=== PATIENT | male | born 1945 | race Caucasian/White ===

== ENCOUNTER 2019-04-20 10:27 | Outpatient (RCR) | payer MEDICARE, SELFPAY ==
[2019-03-17 08:50] LABS: INR 1.9
[2019-03-17 11:43] LABS: Basophils Absolute Auto 0.04 K/mm3 (0.00-0.10); Basophils Percent Auto 0.5 % (0.0-1.0); Eosinophils Percent Auto 1.3 % (1.0-6.0); Hematocrit 37.3 % (37.0-46.0); Hemoglobin 12.8 g/dL (12.4-15.3); Immature Granulocyte Absolute 0.05 K/mm3 (0.00-0.00); Immature Granulocyte Percent A 0.7 % (0.0-0.0); Lymphocytes Absolute Auto 2.33 K/mm3 (1.10-4.50); Lymphocytes Percent Auto 31.1 % (18.0-42.0); Mean Corpuscular HGB Conc 34.3 g/dL (32.0-36.0); Mean Corpuscular Hemoglobin 31.5 pg (27.0-31.0); Mean Corpuscular Volume 91.9 fL (78.0-102.0); Mean Platelet Volume 9.8 fl (8.7-11.0); Monocytes Absolute Auto 0.49 K/mm3 (0.10-0.90); Monocytes Percent Auto 6.5 % (2.0-11.0); Neutrophils Absolute Auto 4.5 K/mm3 (1.7-7.2); Neutrophils Percent Auto 59.9 % (50.0-70.0); Platelet Count Result 282 K/mm3 (150-420); Red Blood Count 4.06 M/mm3 (4.70-6.10); Red Cell Distribution Width 13.2 % (11.6-14.4); White Blood Count 7.5 K/mm3 (4.8-10.8)
[2019-03-17 12:21] LABS: Hemoglobin A1C 13.4 % (<5.7)
[2019-03-17 12:59] LABS: Creatinine Urine 69.35 mg/dL (40-278)
[2019-03-17 13:04] LABS: MALB Creatinine Ratio 576.7 mg/g (0-30); Microalbumin Urine Random > 400.0 mg/L
[2019-03-17 13:05] LABS: Albumin Level 3.4 g/dL (3.4-5.0); Alkaline Phosphatase 128 U/L (46-116); Anion Gap 19.9 mmol/L (7-16); Bilirubin,Total 0.3 mg/dL (0.00-1.00); Blood Urea Nitrogen 29 mg/dL (7-18); Calcium 8.6 mg/dL (8.5-10.1); Carbon Dioxide 21 mmol/L (21-32); Chloride 101 mmol/L (98-108); Cholesterol 287 mg/dL (0-200); Estimated Glomerular Filt Rate 50; Glucose 386 mg/dL (70-99); HDL Direct 28 mg/dL (40-60); Osmolality Calculated 305 mOsm/kg (285-295); Potassium 4.9 mmol/L (3.5-5.1); Sodium 137 mmol/L (136-145); Total Protein 7.4 g/dL (6.4-8.2)
[2019-03-17 13:28] LABS: Alanine Aminotransferase 24 U/L (16-63); Aspartate Amino Transferase 61 U/L (15-37); Uric Acid 10.1 mg/dL (3.5-7.2)
[2019-03-17 13:37] LABS: LDL Cholesterol Calculated 59 mg/dL (<130); Triglycerides > 1000 mg/dL (0-150)
[2019-03-17 13:44] LABS: LDL Cholesterol Direct 73 mg/dL (0-130)
[2019-03-22 03:30] LABS: Hepatitis C Virus Antibody Nonreactive (Nonreactive)
[2019-03-30 15:36] LABS: INR 2.5; Prothrombin Time 25.2 Seconds (9.64-11.0)
[2019-04-20 10:47] LABS: INR 2.3; Prothrombin Time 23.4 Seconds (9.64-11.0)
== END 2019-06-15 23:59 | disposition home or self-care (01) ==
LOC: CHSLAB 10:27
PROVIDERS: PCP Family Medicine; Visit Provider Family Medicine
DX: M10.9 Gout, unspecified (principal); I10 Essential (primary) hypertension; E66.01 Morbid (severe) obesity due to excess calories; Z68.41 Body mass index [BMI] 40.0-44.9, adult; E78.5 Hyperlipidemia, unspecified; Z79.01 Long term (current) use of anticoagulants; E11.9 Type 2 diabetes mellitus without complications; Z11.59 Encounter for screening for other viral diseases
CPT/HCPCS: 36415; 80053; 80061; 82043; 83036; 83721; 84443; 84550; 85025; 85610

== ENCOUNTER 2019-08-09 04:07 | Emergency (ER) | payer MEDICARE, SELFPAY ==
--- NOTE | ~2019-08-09 | XR_ITS ---
EXAMINATION: XR chest 2V DATE: 08/09/2019 05:18 INDICATION: Left upper back and neck pain. TECHNIQUE: Frontal and lateral views of the chest were obtained. COMPARISON: Chest 2 views 10/09/2018 FINDINGS: There is mild atelectasis in left lower lung zone. No pleural effusion or pneumothorax. The heart size is normal. There are old healed bilateral rib fractures. IMPRESSION: 1. Mild atelectasis in left lower lung zone. Reviewed, dictated and finalized at location A.
--- NOTE | ~2019-08-09 | XR_ITS ---
EXAMINATION: XR cervical spine 4-5V DATE: 08/09/2019 05:19 INDICATION: Neck pain. TECHNIQUE: 4 views of cervical spine were obtained. COMPARISON: None. FINDINGS: Bone alignment is normal. Vertebral body heights are normal. There is moderately decreased disc height from C4-C5 through C6-C7. There is multilevel mild to moderate facet joint osteoarthritis . There is mild central canal stenosis at C4-C5, C5-C6, and C6-C7. No prevertebral soft tissue swelli ng. IMPRESSION: 1. Moderate cervical spondylosis. Reviewed, dictated and finalized at location A.
--- NOTE | 2019-08-09 04:18 | ECG_ITS ---
Measurements Intervals [place] Rate: 93 P: -70 [place]: 155 QRS: 37 QRSD: 106 T: 27 QT: 330 QTc: 411 Interpretive Statements ECTOPIC ATRIAL RHYTHM MINIMAL Q WAVES- INFERIOR LEADS NONSPECIFIC T-WAVE ABNORMALITY- INFERIOR LEADS BASELINE ARTIFACT- I, II, AVR, V3-V6 ABNORMAL ECG Electronically Signed On 08-09-2019 7:05:33 CDT by Marco Antonio Bang D.O.
--- NOTE | 2019-08-09 04:20 | ED.GENADULT ---
HPI - General Adult General Chief complaint: Back Pain/Injury Stated complaint: Left shoulder pain Source: patient Mode of arrival: ambulatory Limitations: no limitations History of Present Illness HPI narrative: 73 y.o. began having dull pain yesterday in his left upper back and left side of his neck radiating to the left arm; it got much worse about 7-8 PM. He awoke with severe pain several hours ago, so severe he could get no relief. It sometimes also affects the left anterior shoulder region. Pain is much worse when he tries laying back or raising his arm above the level of his shoulder. He denies SOB, sweating, lightheadedness, dizziness, nausea or vomiting. He spent 3-4 hours riding around on his mower yesterday,which is not unusual for him. He has not seen a PCP for ~ 4 months because of COVID self isolation. His dialy blood sugars have been running below 200. Related Data Home Medications Medication Instructions Recorded Confirmed finasteride 5 mg tablet 5 mg PO DAILY tablet 03/17/19 08/09/19 insulin glargine 100 unit/mL 60 unit SUB-Q BID ml 03/17/19 08/09/19 subcutaneous solution oxybutynin chloride 10 mg 10 mg PO DAILY 03/17/19 08/09/19 tablet,extended release 24 hr warfarin 1 mg tablet 5 mg PO DAILY tablet 03/17/19 08/09/19 fluticasone propionate [Flonase spray INTRANASAL DAILY 08/09/19 Allergy Relief] levetiracetam [Keppra] 750 mg PO BID 08/09/19 08/09/19 multivit with min-folic acid 0.4 mg PO DAILY 08/09/19 08/09/19 [Adult One Daily Multivitamin] Allergies Allergy/AdvReac Type Severity Reaction Status Date / Time No Known Allergies Allergy Verified 03/30/19 14:44 Review of Systems Constitutional: Constitutional: Denies fever(s) ENT: Denies dysphagia Cardiovascular: Cardiovascular: Denies chest pain Respiratory: Respiratory: Denies cough and Denies dyspnea Gastrointestinal: Gastrointestinal: Denies abdominal pain, Denies nausea and Denies vomiting Genitourinary: Genitourinary: Denies dysuria Musculoskeletal: Comments: no low back pain. No pain in elbow wrist or lower extremity joints. Integumentary/Breasts: Skin/Breast: Denies rash Neurologic: Denies vertigo and Denies numbness Hematologic/Lymphatic: Hematologic/Lymphatic: Denies easy bleeding PMFSH Past Medical History Medical History DVT (deep venous thrombosis) Femur fracture Generalized osteoarthritis Gout Hyperlipidemia Hypertension Morbid obesity with BMI of 40.0-44.9, adult Obesity, diabetes, and hypertension syndrome Seizure disorder Sleep apnea Type 2 diabetes mellitus Social History Social History Smoking status: Never smoker Exam Narrative: Exam Narrative: Sitting straight up in bed patient is in minimal distress. Laying back 30-40 degrees immediately brings on pain left upper back and anterior shoulder. Const: Orientation/consciousness: patient oriented x3 Other: Morbid obesity Neck: Other: tender over the C7-T1 spinous process. Spurling's maneuver is negative. able to touch his chin to his chest, look up the ceiling, and look to the left and right without neck pain or affecting his pain. Chest: Chest palpation & inspection: normal inspection of the chest and no localized rib tenderness Breast/axilla inspection: normal inspection of the breasts Resp: Effort & Inspection: normal respiratory effort and able to speak in complete sentences Auscultation: clear to auscultation bilaterally Cardio: Rate: regular rate Rhythm: regular rhythm Heart sounds: no murmurs GI: Other: Abdomen is distended from obesity. There is no tenderness no palpable masses Back/Spine/Pelvis: Back: no CVA tenderness and No mass Cervical Spine: normal cervical lordosis, cervical ROM normal and other ( points to the L trapezius supra- and infra-spinatus where he has pain) Thoracic/Lumbar Spine: thoracic an
[2019-08-09 04:29] VITALS: BP 159/83; PULSE 96; RESP 20; TEMP 37.3; O2SAT 100
[2019-08-09 04:50] LABS: Hematocrit 36.5 % (37.0-46.0); Hemoglobin 11.9 g/dL (12.4-15.3); Mean Corpuscular HGB Conc 32.6 g/dL (32.0-36.0); Mean Corpuscular Hemoglobin 31.2 pg (27.0-31.0); Mean Corpuscular Volume 95.5 fL (78.0-102.0); Mean Platelet Volume 9.7 fl (8.7-11.0); Platelet Count Result 231 K/mm3 (150-420); Red Blood Count 3.82 M/mm3 (4.70-6.10); Red Cell Distribution Width 13.1 % (11.6-14.4); White Blood Count 13.5 K/mm3 (4.8-10.8)
[2019-08-09 05:12] LABS: Alanine Aminotransferase 22 U/L (16-63); Albumin Level 3.5 g/dL (3.4-5.0); Alkaline Phosphatase 117 U/L (46-116); Aspartate Amino Transferase 18 U/L (15-37); Bilirubin,Total 0.4 mg/dL (0.00-1.00); Blood Urea Nitrogen 42 mg/dL (7-18); CRP 2.6 mg/dL (0.0-0.9); Calcium 8.7 mg/dL (8.5-10.1); Carbon Dioxide 21 mmol/L (21-32); Chloride 105 mmol/L (98-108); Estimated CRCL calculation 41 ml/min; Estimated Glomerular Filt Rate 39; Glucose 298 mg/dL (70-99); Osmolality Calculated 309 mOsm/kg (285-295); Sodium 139 mmol/L (136-145); Total Protein 7.6 g/dL (6.4-8.2)
[2019-08-09 05:13] LABS: Troponin I < 0.02 ng/mL (0.00-0.056)
[2019-08-09 05:55] LABS: INR 4.4; Prothrombin Time 43.3 Seconds (9.64-11.0)
[2019-08-09 06:17] VITALS: BP 158/71; PULSE 80; RESP 18; O2SAT 100
== END 2019-08-09 06:23 | disposition home or self-care (01) ==
PROVIDERS: Emergency Provider Family Medicine; PCP Family Medicine
DX: M54.6 Pain in thoracic spine (principal); M25.512 Pain in left shoulder; R79.1 Abnormal coagulation profile; Z86.718 Personal history of other venous thrombosis and embolism; Z79.01 Long term (current) use of anticoagulants; E78.5 Hyperlipidemia, unspecified; I10 Essential (primary) hypertension; E11.9 Type 2 diabetes mellitus without complications
CPT/HCPCS: 36415; 71046; 72050; 80053; 84484; 85027; 85610; 86140; 93005; 99284

== ENCOUNTER 2019-08-10 09:51 | Outpatient (CLI) | payer MEDICARE, SELFPAY ==
[2019-08-10 10:21] LABS: Hemoglobin A1C 11.2 % (<5.7)
[2019-08-10 10:53] LABS: Cholesterol 106 mg/dL (0-200); HDL Direct 43 mg/dL (40-60); LDL Cholesterol Calculated 28 mg/dL (<130); Triglycerides 174 mg/dL (0-150); Uric Acid 6.5 mg/dL (3.5-7.2)
== END 2019-08-10 09:52 | disposition home or self-care (01) ==
LOC: CHSLAB 09:53
PROVIDERS: PCP Family Medicine; Visit Provider Family Medicine
DX: E78.1 Pure hyperglyceridemia (principal); E11.9 Type 2 diabetes mellitus without complications; M10.9 Gout, unspecified
CPT/HCPCS: 36415; 80061; 83036; 84550

== ENCOUNTER 2019-08-12 10:43 | Emergency (ER) | payer MEDICARE, SELFPAY ==
[2019-08-12] VITALS (9 sets, daily range): BP systolic 119–177; BP diastolic 31–89; PULSE 86–100; RESP 14–23; TEMP 36.5; O2SAT 95–99
--- NOTE | ~2019-08-12 | XR_ITS ---
XR chest 1V portable 08/12/2019 11:38 Indication: Weakness and tachypnea. Procedure: AP portable chest Comparison: 08/09/2019 Findings: Cardiomegaly. No focal air space disease, pulmonary edema, pleural effusion or suspected pn eumothorax. There is atherosclerosis of the aorta. No acute osseous abnormality. Impression: 1: No acute cardiopulmonary disease. Reviewed, dictated and finalized at location A. Impression: 1: No acute cardiopulmonary disease.
--- NOTE | ~2019-08-12 | CT_ITS ---
EXAMINATION: CT chest abdomen pelvis wo con DATE: 08/12/2019 13:15 CDT INDICATION: Sepsis. TECHNIQUE: Computed tomography (CT) of the chest, abdomen, and pelvis was performed without intraveno us contrast. The dose-length product was 1781.23 mGy-cm. Automated exposure control and iterative rec onstruction technique were employed. COMPARISON: None FINDINGS: CHEST CT: There is lingular and left lower lobe airspace consolidation, consistent with pneumonia. Small left p leural effusion. Dependent atelectasis right lower lobe. There is atherosclerosis. Borderline heart s ize. No thoracic lymphadenopathy. Evaluation of lung parenchyma for small pulmonary nodules limited b y motion artifact. No endobronchial lesions. ABDOMEN/PELVIS CT: Gallbladder is moderately distended. The liver, spleen, pancreas, adrenal glands and left kidney are unremarkable. There is an exophytic 2.2 cm right renal mass measuring 41 Hounsfield units. There is a 2 cm exophytic right renal mass medially measuring 30 Hounsfield units. There is an additional 2.4 c m right renal mass measuring 24 Hounsfield units. Nonobstructive bowel gas pattern. Normal appendix. Dumont catheter present in the bladder. Colonic diverticulosis without evidence for diverticulitis. No free air or free fluid. There is an intramedullary angela partially visualized in the right femur. Mode rate thoracic and lumbar spondylosis. IMPRESSION: 1. Lingular and left lower lobe airspace consolidation, consistent with pneumonia. 2: Small left pleural effusion. 3: Complicated exophytic right renal cysts, largest measuring 2.4 cm. Correlation with ultrasound or MRI recommended. Reviewed, dictated and finalized at location A. IMPRESSION: 1. Lingular and left lower lobe airspace consolidation, consistent with pneumon ia. 2: Small left pleural effusion. 3: Complicated exophytic right renal cysts, largest measuring 2.4 cm. Correlati on with ultrasound or MRI recommended.
--- NOTE | ~2019-08-12 | CT_ITS ---
EXAMINATION: CT brain wo con DATE: 08/12/2019 11:37 INDICATION: Status post fall. Confusion. TECHNIQUE: Computed tomography (CT) of the head was performed without intravenous contrast. The dose- length product was 605.33 mGy-cm. The mA was adjusted according to patient size. Iterative reconstruc tion technique was employed. COMPARISON: CT dated 04/07/2006 FINDINGS: No acute intracranial hemorrhage, infarction, mass or mass effect. Mild generalized atrophy . There are scattered mild periventricular and subcortical white matter changes, most likely related to small vessel ischemic disease (microangiopathy). There is intracranial atherosclerosis. Paranasal sinuses and mastoids are pneumatized. No depressed skull fractures. IMPRESSION: 1. No acute intracranial abnormality. 2: Chronic age-related findings. Reviewed, dictated and finalized at location A.
--- NOTE | 2019-08-12 10:56 | ED.GENADULT ---
HPI - General Adult General Chief complaint: Altered Mental Status Stated complaint: ambulance Source: EMS Mode of arrival: EMS Limitations: altered mental status History of Present Illness HPI narrative: 73 y.o. with hx of diabetes and CKD has been weak x 2 days; he had some trouble ambulating yesterday. His states he fell off a mower onto his face yesterday. Last night he fell at home onto carpet. Pt. was left on floor because of inability to get him up last night and this AM. This AM he is confused, mumbling nonsense according to his . Pt. knew he was in the hospital. Doesn't know which one, what month or year it is; knows he's 73 y.o. He states he's here because of pain, pointing to the left anterior chest and left lower abdomen. The answers to the same questions change management consultant minutes. Related Data Home Medications Medication Instructions Recorded Confirmed finasteride 5 mg tablet 5 mg PO DAILY tablet 03/17/19 08/12/19 oxybutynin chloride 10 mg 10 mg PO DAILY 03/17/19 08/12/19 tablet,extended release 24 hr fluticasone propionate [Flonase 2 spray INTRANASAL DAILY 08/09/19 08/12/19 Allergy Relief] levetiracetam [Keppra] 750 mg PO BID 08/09/19 08/12/19 multivit with min-folic acid 0.4 mg PO DAILY 08/09/19 08/12/19 [Adult One Daily Multivitamin] insulin glargine [Lantus U-100 60 unit SUBCUT BID 08/12/19 08/12/19 Insulin] lacosamide [Vimpat] 200 mg PO BID 08/12/19 08/12/19 Allergies Allergy/AdvReac Type Severity Reaction Status Date / Time No Known Allergies Allergy Verified 08/10/19 08:52 Review of Systems Review of Systems: Narrative: Reliability of answers is unreliable secondary to confusion. Constitutional: Constitutional: Denies chills and Denies fever(s) PMFSH Social History Social History Smoking status: Never smoker Exam Narrative: Exam Narrative: alert Disoriented to time, date, situation. Knows he's at the hospital but not what city. Able to grab railing and pull himself to sitting position and hold it. Const: Limitations: altered mental status HENMT: Mouth: Yes dry mucous membranes Eyes: Conjunctivae: conjunctivae normal Pupils: Equal, round and reactive pupils present EOM: EOMs intact bilaterally Neck: Neck: no lymphadenopathy Chest: Chest palpation & inspection: normal inspection of the chest Resp: Effort & Inspection: normal respiratory effort Auscultation: clear to auscultation bilaterally and diminished lung sounds bilateral Cardio: Rate: regular rate Rhythm: regular rhythm Heart sounds: no murmurs Other: Too obese to appreciate JVD GI: GI Palp: Yes Soft to palpation, No Tenderness to palpation present (GI), No Guarding due to palpation present (GI), No Rigid due to palpation, No Hernia present and No Palpable mass present Percussion: Yes normal to percussion : General: Yes no CVA tenderness Urinary Catheter: Urinary Catheter: patent and draining Back/Spine/Pelvis: Back: no CVA tenderness Skin: General skin exam: normal color Rashes: rash noted Neuro: General: moves all extremities and CN's II-XI intact bilaterally Other: finger-nose, 10 second arm and leg raise intact. 5+ hand pizza chef. Extrem: General: normal to inspection and no pedal edema Psych: Appearance: grossly normal Affect: normal affect Attitude: cooperative Thought content: Yes Normal thought content present Course Course Emergency Course: I spoke with Iram his on the phone. He is to be fully resuscitated. Transfer to [place]. I explained Mr. Agustin is very sick with an infection. Discussed with Dr. Noriega, [facility]. Zosyn 4.5 gm has been given. Instructed to give 1 gm of vancomycin and 2 liters of lactated ringers. Accepts pt in transfer. Vital Signs Vital signs: Vital Signs Temperature 36.5 C 08/12/19 10:55 Pulse Rate 87 08/12/19 10:55 Respiratory Rate 18 08/12/19 10:
--- NOTE | 2019-08-12 10:57 | ECG_ITS ---
Measurements Intervals [place] Rate: 87 P: -5 [place]: 200 QRS: 34 QRSD: 119 T: -26 QT: 354 QTc: 427 Interpretive Statements SINUS RHYTHM BORDERLINE AV CONDUCTION DELAY INTRAVENTRICULAR CONDUCTION DELAY BORDERLINE ST-T WAVE ABNORMALITY- INFERIOR LEADS BORDERLINE ECG Electronically Signed On 08-13-2019 8:15:49 CDT by Marco Antonio Bang D.O.
[2019-08-12 11:24] LABS: HCO3 ABG 11.1 mmol/L (23-29); Oxygen Content ABG 15.1 %vol (16.0-22.0); Oxygen Saturation ABG 95.2 % (95-97); Oxyhemoglobin 94.8 % (94-100); PCO2 ABG 24.6 mmHg (35-45); PO2 ABG 80.3 mmHg (75-85); Total Hemoglobin 11.3 g/dL; pH ABG 7.27 (7.35-7.45)
[2019-08-12 11:29] LABS: Device ROOM AIR; Modified Allen's Test Pass; Site Drawn RIGHT RADIAL
[2019-08-12 11:44] LABS: Alanine Aminotransferase 28 U/L (16-63); Albumin Level 2.8 g/dL (3.4-5.0); Alkaline Phosphatase 103 U/L (46-116); Anion Gap 24.5 mmol/L (7-16); Aspartate Amino Transferase 136 U/L (15-37); Bilirubin,Total 0.7 mg/dL (0.00-1.00); Blood Urea Nitrogen 86 mg/dL (7-18); Calcium 9.1 mg/dL (8.5-10.1); Carbon Dioxide 16 mmol/L (21-32); Chloride 104 mmol/L (98-108); Estimated Glomerular Filt Rate 11; Glucose 119 mg/dL (70-99); Osmolality Calculated 317 mOsm/kg (285-295); Potassium 4.5 mmol/L (3.5-5.1); Sodium 140 mmol/L (136-145); Total Protein 7.8 g/dL (6.4-8.2)
[2019-08-12 11:46] LABS: Lactic Acid 1.6 mmol/L (0.4-2.0)
[2019-08-12 11:47] LABS: Troponin I < 0.02 ng/mL (0.00-0.056)
[2019-08-12 11:49] LABS: D Dimer 4.97 mg/L (0.19-0.50); Hematocrit 33.5 % (37.0-46.0); Mean Corpuscular HGB Conc 32.8 g/dL (32.0-36.0); Mean Corpuscular Hemoglobin 31.3 pg (27.0-31.0); Mean Corpuscular Volume 95.2 fL (78.0-102.0); Mean Platelet Volume 10.5 fl (8.7-11.0); Platelet Count Result 287 K/mm3 (150-420); Red Blood Count 3.52 M/mm3 (4.70-6.10); Red Cell Distribution Width 13.6 % (11.6-14.4)
[2019-08-12 11:50] LABS: White Blood Count 24.3 K/mm3 (4.8-10.8)
[2019-08-12 11:52] LABS: Thyroid Stimulating Hormone 1.08 uIU/mL (0.36-3.74)
[2019-08-12 11:55] LABS: BNP 63.4 pg/mL (0-100)
[2019-08-12 12:00] LABS: Band Neutrophils Percent 4 % (0-6); Basophils Percent Manual 0 % (0-1); Eosinophils Percent Manual 0 % (1-6); Lymphocytes Absolute Manual 1.94 K/mm3 (1.1-4.5); Lymphocytes Percent Manual 8 % (18-44); Metamyelocytes Percent 1 %; Monocytes Percent Manual 7 % (3-9); Neutrophils Absolute Manual 20.41 K/mm3 (1.3-6.7); Neutrophils Percent Manual 80 % (46-73); Total Cells Counted 100
[2019-08-12 12:01] LABS: Platelet Estimate Adequate (Adequate)
[2019-08-12 12:10] LABS: Magnesium 1.7 mg/dL (1.8-2.4)
[2019-08-12] MEDS: LACTATED RINGERS 1,000 ML 999 ML IV CONT ×3 (12:22→15:26)
[2019-08-12 12:26] LABS: Add Urine Microscopic? YES; Appearance Urine Clear (Clear); Bilirubin Urine 1+ (Negative); Blood Urine 3+ (Negative); Color Urine Amber (Yellow); Glucose Urine UA Negative (Negative); Ketones Urine 1+ (Negative); Leukocyte Esterase Ur Negative (Negative); Nitrate Urine Negative (Negative); Protein Urine 2+ (Negative); Specific Grav Ur >= 1.030 (1.010-1.020); Urobilinogen Urine 0.2 mg/dL (0.2-1.0)
[2019-08-12 12:35] LABS: Renal Epithelial Cells Urine Rare /hpf; Squamous Epithelial Cell Urine Rare /hpf (Few); WBC Urine None seen /hpf (0-3)
[2019-08-12 12:36] LABS: Amorphous Sediment Urine Moderate; Bacteria Urine 1+ /hpf
--- NOTE | 2019-08-12 13:21 | PC.NURSE ---
Pt spouse requests [facility] for transfer.
--- NOTE | 2019-08-12 13:26 | PC.NURSE ---
Urine from urinary catheter is now blood tinged
[2019-08-12 13:38] LABS: INR 18.7
--- NOTE | 2019-08-12 13:49 | PC.NURSE ---
Dr. ceja speaking with Dr. Dowell at [facility].
[2019-08-12 13:59] LABS: Creatine Kinase 4899 U/L (39-308)
[2019-08-12 14:23] LABS: Influenza Control Valid (Valid)
--- NOTE | 2019-08-12 16:04 | PC.NURSE ---
RN at [facility] updated on pts status and departure from er.
[2019-08-14 11:01] LABS: SARS-CoV-2 RNA PCR Negative
== END 2019-08-12 16:05 | disposition short-term general hospital (02) ==
PROVIDERS: Emergency Provider Family Medicine; PCP Family Medicine
DX: J18.9 Pneumonia, unspecified organism (principal); A41.9 Sepsis, unspecified organism; D65 Disseminated intravascular coagulation [defibrination syndrome]
CPT/HCPCS: 36415; 36600; 70450; 71045; 71250; 74176; 80053; 81001; 82550; 82805; 83605; 83735; 83880; 84443; 84484; 85025; 85380; 85610; 85730; 87040; 87635; 87804; 93005; 96361; 96365; 96367; 96375; 99283; 99285; C9803; J2543; J3010; J3370; J7120; U0003